=== PATIENT | female | born 1995 | race Caucasian/White ===

== ENCOUNTER 2020-04-21 10:14 | Emergency (ER) | payer MEDICAID, SELFPAY ==
[2020-04-21 10:22] VITALS: BP 142/95; PULSE 98; RESP 16; TEMP 36.2; O2SAT 99
--- NOTE | 2020-04-21 11:11 | ED.ABDPAIN ---
HPI - Abdominal Pain General Chief Complaint: Abdominal Pain Stated Complaint: abdominal pain Source: patient Mode of arrival: ambulatory Limitations: no limitations History of Present Illness HPI narrative: Patient is a 24-year-old female who presents complaining of upper abdominal pain, nausea and vomiting. She reports a history of PCOS. She reports symptoms since 04/17. Patient was Covid positive and reports quarantine ended on 04/19. She denies urinary symptoms or other complaints. MD elicited complaint: abdominal pain Related Data Home Medications Medication Instructions Recorded Confirmed omeprazole 20 mg PO DAILY 04/21/20 04/21/20 Allergies Allergy/AdvReac Type Severity Reaction Status Date / Time ceftibuten Allergy Mild HIVES Verified 04/21/20 10:33 Review of Systems Review of Systems: Narrative: CONSTITUTIONAL: Denies fever, chills, or sweats. EYES: Denies visual changes, redness, or discharge. ENT: Denies rhinorrhea, congestion, sore throat, or otalgia. CARDIOVASCULAR: Denies chest pain, palpitations, or edema. RESPIRATORY: Denies cough or dyspnea. GASTROINTESTINAL: Reports abdominal pain, nausea and vomiting x 4 days. GENITOURINARY: Denies dysuria or hematuria. SKIN: Denies rash or itching. MUSCULOSKELETAL: Denies back pain, joint pain, or myalgia. NEUROLOGIC: Denies headache, numbness, dizziness, or weakness. PSYCHIATRIC: Denies anxiety or depression. PMFSH Past Medical History Medical History Asthma GERD (gastroesophageal reflux disease) Obesity PCOS (polycystic ovarian syndrome) Pharyngitis Surgical History Surgical History No significant past surgical history Family History Family History Father Diabetes mellitus Mother Diabetes mellitus Social History Social History (Updated 04/21/20 @ 11:20 by MARLEN Blakely) Smoking status: Never smoker Alcohol intake: never Substance use: never Exam Narrative: Exam Narrative: GENERAL: Well-appearing, well-nourished, and in no acute distress. HEAD: Normocephalic, atraumatic. EYES: EOMI. Conjunctiva are normal. ENT: Mucous membranes pink and moist. CHEST: No respiratory distress. HEART: Regular rate and rhythm. GI: Soft without distention. Bowel sounds normal in all quadrants. Tenderness with palpation to epigastric and left upper abdomen MUSCULOSKELETAL: No bony tenderness. EXTREMITIES: Normal range of motion. No edema. SKIN: Warm, dry, no rash. NEURO: No focal deficits. Alert and oriented x3. Gait steady. PSYCH: Normal affect. No signs of depression or anxiety. Course Vital Signs Vital signs: Vital Signs Temperature 36.2 C L 04/21/20 10:22 Pulse Rate 98 04/21/20 10:22 Respiratory Rate 16 04/21/20 10:22 Blood Pressure 142/95 H 04/21/20 10:22 Pulse Oximetry 99 04/21/20 10:22 Temperature 36.2 C L 04/21/20 10:22 Pulse Rate 98 04/21/20 10:22 Respiratory Rate 16 04/21/20 10:22 Blood Pressure 142/95 H 04/21/20 10:22 Pulse Oximetry 99 04/21/20 10:22 Reviewed. Patient has been instructed to follow-up with her PCP regarding her blood pressure. Transfer Transfered to: [facility] Transfer rationale: Higher level care and need for further diagnostic testing Accepting physician: Dr. Lozada Transfer comments: Patient to transfer by private vehicle at this time. MDM - Abdominal Pain MDM Narrative Medical decision making narrative: Patient has abdominal pain and tenderness along with nausea and vomiting. Discussed with patient the need for further evaluation and diagnostic testing that are unavailable in urgent care. Patient to go to emergency department for further evaluation. Patient agrees with plan of care. Patient is stable for transfer to [facility] emergency department by private vehicle. Differential Diagnosis Differentia
== END 2020-04-21 11:21 | disposition short-term general hospital (02) ==
PROVIDERS: Emergency Provider Nurse Practitioner; PCP Internal Medicine
DX: R10.10 Upper abdominal pain, unspecified (principal); J45.909 Unspecified asthma, uncomplicated; K21.9 Gastro-esophageal reflux disease without esophagitis; E28.2 Polycystic ovarian syndrome; E66.9 Obesity, unspecified; Z68.41 Body mass index [BMI] 40.0-44.9, adult
CPT/HCPCS: 81003; 81025; 99213; G0463

== ENCOUNTER 2020-04-21 11:57 | Emergency (ER) | payer MEDICAID, SELFPAY ==
--- NOTE | ~2020-04-21 | US_ITS ---
EXAMINATION: US abdomen limited EXAM DATE: 04/21/2020 13:44 INDICATION: Abdominal pain. TECHNIQUE: Multiple grayscale and Doppler images of the abdomen right upper quadrant were obtained (b y a technologist who performed the scan) and subsequently reviewed. Comparison is made to prior exami nation from 09/04/2018. FINDINGS: The pancreatic head and body are normal in appearance. The pancreatic tail is not visualized. The l iver has normal echogenicity and contour. There is 1.3 cm right liver dome lesion, unchanged compare d to prior study consistent with benign histology. There is no evidence of intrahepatic biliary duct dilation. Portal venous flow was seen in the hepatopedal, normal direction and has normal Doppler w aveform. No right-sided hydronephrosis. Common bile duct measures 3 mm, which is normal. The gallbladder wall is normal in thickness, with ex pected amount of distention. No sonographic evidence of pericholecystic fluid. There is no cholelit hiases. Technologist performing exam reports patient did not demonstrate sonographic Merlos's sign. Please note that this sign is less reliable in patients who have received pain medication. IMPRESSION: 1. Small liver lesion unchanged, benign. 2. Unremarkable gallbladder. Reviewed, dictated and finalized at location B. [facility]
[2020-04-21 12:15] VITALS: BP 123/85; PULSE 98; RESP 16; TEMP 36.9; O2SAT 100
[2020-04-21 12:34] LABS: Basophils Percent Auto 0.4 % (0.2-1.2); Eosinophils Percent Auto 0.1 % (0-4.4); Hematocrit 47.5 % (37.0-47.0); Hemoglobin 16.2 g/dL (12.0-15.0); Immature Granulocyte Absolute 0.07 K/mm3 (0.00-0.031); Immature Granulocyte Percent A 0.7 % (0-0.5); Lymphocytes Absolute Auto 1.71 K/mm3 (0.9-3.2); Lymphocytes Percent Auto 18.2 % (18.3-44.2); Mean Corpuscular HGB Conc 34.1 g/dl (32-36); Mean Corpuscular Hemoglobin 30.4 pg (26-34); Mean Corpuscular Volume 89.1 fl (80-100); Mean Platelet Volume 9.4 fl (7.4-10.4); Monocytes Absolute Auto 0.5 K/mm3 (0.1-0.6); Monocytes Percent Auto 4.8 % (2.6-8.5); Neutrophils Absolute Auto 7.1 K/mm3 (1.3-6.7); Neutrophils Percent Auto 75.8 % (45.5-73.1); Platelet Count Result 259 k/mm3 (150-375); Red Blood Count 5.33 M/mm3 (4.2-5.4); Red Cell Distribution Width 13.2 % (11.5-14.5); White Blood Count 9.4 K/mm3 (4.5-10.0)
--- NOTE | 2020-04-21 12:34 | ED.GENADULT ---
HPI - General Adult General Chief complaint: Abdominal Pain Stated complaint: abd pain/n/v Time Seen by Provider: 04/21/20 12:11 Source: patient History of Present Illness HPI narrative: Patient is a 24 y/o female complaining of right upper abdominal pain starting 4 days ago. She describes her pain as sharp and cramping. She rates her pain as 4/10. There is no pain radiation. She states that eating make her pain worse. She has some nausea, vomiting and diarrhea. Of note, she tested positive for COVID on 04/11. She states that she was seen at urgent care and sent here for evaluation of possible gallbladder problem. Related Data Home Medications Medication Instructions Recorded Confirmed No Home Medications 04/21/20 04/21/20 Allergies Allergy/AdvReac Type Severity Reaction Status Date / Time ceftibuten Allergy Mild HIVES Verified 04/21/20 12:39 Review of Systems Constitutional: Constitutional: Denies chills, Denies fever(s), Denies headache(s) and Denies weakness Eyes: Eyes: Denies blurry vision ENT: Denies headache(s) and Denies neck pain Cardiovascular: Cardiovascular: Denies chest pain and Denies dyspnea Respiratory: Respiratory: Denies cough and Denies dyspnea Gastrointestinal: Gastrointestinal: Reports abdominal pain, Reports diarrhea, Reports nausea and Reports vomiting Genitourinary: Genitourinary: Denies hematuria and Denies dysuria Musculoskeletal: Musculoskeletal: Denies back pain and Denies neck pain Neurologic: Denies headache(s) and Denies weakness PMFSH Past Medical History Medical History Asthma GERD (gastroesophageal reflux disease) Obesity PCOS (polycystic ovarian syndrome) Pharyngitis Surgical History Surgical History No significant past surgical history Family History Family History Father Diabetes mellitus Mother Diabetes mellitus Social History Social History Smoking status: Never smoker Alcohol intake: never Substance use: never Exam Const: General: no acute distress and well developed Orientation/consciousness: oriented to person, oriented to place, oriented to time and patient oriented x3 HENMT: Head: normocephalic Ears: external ears normal General nose exam: Normal external nose present Eyes: General: appearance normal, both eyes and all related structures Conjunctivae: conjunctivae normal Neck: Neck: normal visual inspection and full ROM Chest: Chest palpation & inspection: normal inspection of the chest and no tenderness Resp: Effort & Inspection: normal respiratory effort Auscultation: clear to auscultation bilaterally Cardio: Rate: regular rate Rhythm: regular rhythm GI: GI Palp: No abdominal tenderness and Yes Soft to palpation Skin: General skin exam: normal color and turgor normal Neuro: General: oriented to person, oriented to place, oriented to time and patient oriented x3 Cognition (Neuro): normal cognition Extrem: General: normal to inspection, full ROM and no pedal edema Psych: Appearance: grossly normal Mental Status: mental status grossly normal Affect: normal affect Course Reevaluation(s) Reevaluation #1: Patient wants to leave before evaluation is complete. She left AMA. She is awake, alert and competent to make medical decision for herself. Date: 04/21/20 Time: 13:45 Vital Signs Vital signs: Vital Signs Temperature 36.9 C 04/21/20 12:15 Pulse Rate 98 04/21/20 12:15 Respiratory Rate 16 04/21/20 12:15 Blood Pressure 123/85 04/21/20 12:15 Pulse Oximetry 100 04/21/20 12:15 Temperature 36.9 C 04/21/20 12:15 Pulse Rate 98 04/21/20 12:15 Respiratory Rate 16 04/21/20 12:15 Blood Pressure 123/85 04/21/20 12:15 Pulse Oximetry 100 04/21/20 12:15 Medical Decision Making Vital Sign
[2020-04-21] MEDS: METOCLOPRAMIDE HCL INJ 10 MG/2 ML VIAL IV PUSH (12:58)
[2020-04-21] MEDS: SODIUM CHLORIDE 0.9% IV 1,000 ML 999 ML IV CONT (12:59)
[2020-04-21] MEDS: KETOROLAC 30 MG/ML VIAL (*BKC) IV PUSH (12:59)
[2020-04-21 13:18] LABS: Add Urine Microscopic? YES; Appearance Urine Cloudy (Clear); Bacteria Urine Trace /hpf; Bilirubin Urine Negative (Negative); Blood Urine Negative (Negative); Color Urine Yellow (Yellow); Glucose Urine UA Negative (Negative); Ketones Urine 2+ mg/dL (Negative); Leukocyte Esterase Ur 1+ LEU/UL (Negative); Mucus Urine Rare /lpf; Nitrate Urine Negative (Negative); Protein Urine 1+ mg/dL (Negative); Squamous Epithelial Cell Urine Many /hpf (Few)
[2020-04-21 13:21] LABS: Specific Grav Ur 1.034 (1.001-1.035)
[2020-04-21 13:23] LABS: Alanine Aminotransferase 56 U/L (4-35); Albumin Level 4.4 g/dL (3.5-5.1); Alkaline Phosphatase 74 U/L (38-126); Anion Gap 11 mmol/L (8-16); Aspartate Amino Transferase 33 U/L (14-36); Bilirubin,Total 0.7 mg/dL (0.2-1.3); Blood Urea Nitrogen 14 mg/dL (7-17); Calcium 9.3 mg/dL (8.4-10.2); Carbon Dioxide 25 mmol/L (22-30); Chloride 103 mmol/L (98-107); Estimated CRCL calculation 181 ml/min; Estimated Glomerular Filt Rate > 60; Glucose 90 mg/dL (65-105); Lipase 72 U/L (23-300); Potassium 3.4 mmol/L (3.4-5.0); Sodium 139 mmol/L (137-145)
== END 2020-04-21 13:45 | disposition left against medical advice (07) ==
PROVIDERS: Emergency Provider Emergency Medicine; PCP Internal Medicine
DX: R10.11 Right upper quadrant pain (principal); Z86.19 Personal history of other infectious and parasitic diseases; J45.909 Unspecified asthma, uncomplicated; K21.9 Gastro-esophageal reflux disease without esophagitis; E28.2 Polycystic ovarian syndrome; E66.9 Obesity, unspecified; Z68.41 Body mass index [BMI] 40.0-44.9, adult
CPT/HCPCS: 36415; 76705; 80053; 81001; 81003; 81025; 83690; 85025; 96361; 96374; 96375; 99284; J1885; J2765; J7030

== ENCOUNTER 2020-04-21 14:25 | Emergency (ER) | payer MEDICAID, SELFPAY ==
[2020-04-21 14:31] VITALS: BP 147/99; PULSE 117; RESP 18; TEMP 36.3; O2SAT 100
--- NOTE | 2020-04-21 15:22 | ED.ABDPAIN ---
HPI - Abdominal Pain General Chief Complaint: Abdominal Pain Stated Complaint: abd pain/ nausea Time Seen by Provider: 04/21/20 14:33 Source: patient and old records reviewed Mode of arrival: ambulatory Limitations: no limitations History of Present Illness HPI narrative: Patient is a 24-year-old female who returns to emergency department after leaving AGAINST MEDICAL ADVICE this morning patient been evaluated for abdominal pain returns wanting to know her results patient notes mild discomfort in the upper abdomen which she has been having off and on worse in the mornings patient not take anything for her symptoms is currently getting over COVID-19 and has been cleared by the health department patient does continue to have mild cough but denies chest pain or dyspnea patient on arrival to emergency department is in no distress does not want any medications patient denies similar occurrence in the past Related Data Home Medications Medication Instructions Recorded Confirmed omeprazole 04/21/20 04/21/20 Allergies Allergy/AdvReac Type Severity Reaction Status Date / Time ceftibuten Allergy Mild HIVES Verified 04/21/20 14:34 Review of Systems Review of Systems: All systems reviewed & are unremarkable except as noted in HPI and below PMFSH Past Medical History Medical History Asthma GERD (gastroesophageal reflux disease) Obesity PCOS (polycystic ovarian syndrome) Pharyngitis Surgical History Surgical History No significant past surgical history Family History Family History Father Diabetes mellitus Mother Diabetes mellitus Social History Social History Smoking status: Never smoker Alcohol intake: never Substance use: never Exam Narrative: Exam Narrative: GENERAL: Well-appearing, obese, and in no acute distress. HEAD: Normocephalic, atraumatic. EYES: PERRLA and EOMI. ENT: Nares clear, no rhinorrhea or epistaxis. Mucous membranes moist. CHEST: Clear to auscultation. No respiratory distress. No wheezes rales or rhonchi HEART: Regular rate and rhythm. No murmur heard. Normal peripheral pulses. ABDOMEN: Soft, mild tenderness in the upper abdomen, nondistended. No rebound or guarding EXTREMITIES: Normal range of motion. No edema. SKIN: Warm, dry, no rash. NEURO: No focal deficits. Alert and oriented x3. PSYCH: Normal mood and affect. Course Course Emergency Course: Patient made aware of findings notes that she prefers to leave at this time does not want any interventions or medications will follow with primary care is afebrile nontoxic-appearing no distress and felt appropriate for outpatient reevaluation Vital Signs Vital signs: Vital Signs Temperature 97.3 F L 04/21/20 14:31 Pulse Rate 117 H 04/21/20 14:31 Respiratory Rate 18 04/21/20 14:31 Blood Pressure 147/99 H 04/21/20 14:31 Pulse Oximetry 100 04/21/20 14:31 Temperature 97.3 F L 04/21/20 14:31 Pulse Rate 117 H 04/21/20 14:31 Respiratory Rate 18 04/21/20 14:31 Blood Pressure 147/99 H 04/21/20 14:31 Pulse Oximetry 100 04/21/20 14:31 MDM - Abdominal Pain MDM Narrative Medical decision making narrative: Patient with abdominal pain in the room in no distress agreeing to follow with primary care felt appropriate for outpatient reevaluation Differential Diagnosis Differential diagnosis: Likely abdominal pain, acute appendicitis, calculus of kidney, constipation, diverticulitis and small bowel obstruction Discharge Plan Discharge Clinical Impression: Abdominal pain Patient Disposition: Home, Self-Care Condition: Stable Instructions: Antibiotic Form, Abdominal Pain (ED) Additional Instructions: Follow up with your primary care doctor tommorrow to set up for reevaluation in the nex
== END 2020-04-21 15:41 | disposition home or self-care (01) ==
PROVIDERS: Emergency Provider Emergency Medicine; PCP Internal Medicine
DX: R10.10 Upper abdominal pain, unspecified (principal); J45.909 Unspecified asthma, uncomplicated; K21.9 Gastro-esophageal reflux disease without esophagitis; E66.9 Obesity, unspecified; Z68.41 Body mass index [BMI] 40.0-44.9, adult; E28.2 Polycystic ovarian syndrome
CPT/HCPCS: 99283